=== PATIENT | male | born 1930 | race Caucasian/White ===

== ENCOUNTER 2017-10-17 15:10 | Inpatient (IN) | payer OTHER ==
[~2017-10-17] VITALS: Ht 180.3 cm; Wt 79.0 kg
[2017-10-17] VITALS (9 sets, daily range): BP systolic 137–171; BP diastolic 68–78; Ht 180.3 cm; Wt 79.0 kg
[~2017-10-17 15:10] MED LIST: ALTOPREV10 MG PO; DIOHCT PO
[2017-10-17 18:56] LABS: PLATELET COUNT 173 x10^3mcL (130-400)
[2017-10-17 18:59] LABS: BASOPHIL % 0 % (0-2); RED CELL DISTRIBUTION WIDTH 15.8 % (11.5-14.5)
[2017-10-17 19:15] LABS: ALBUMIN 2.9 g/dL (3.4-5.0); ALKALINE PHOSPHATASE 503 U/L (46-116); ALT/SGPT 137 U/L (16-63); AST/SGOT 86 U/L (15-37); BILIRUBIN TOTAL 4.43 mg/dL (0.20-1.00); CALCIUM 8.1 mg/dL (8.5-10.1); CARBON DIOXIDE 13.1 mmol/L (21-32); CHLORIDE SERUM 104 mmol/L (98-107); GLUCOSE SERUM 107 mg/dL (74-106); POTASSIUM SERUM 4.7 mmol/L (3.5-5.1); SODIUM SERUM 134 mmol/L (136-145); TOTAL PROTEIN, SERUM 7.7 g/dL (6.4-8.2)
[2017-10-17 19:19] LABS: CREATININE SERUM 10.2 mg/dL (0.7-1.3)
[2017-10-17] MEDS ORDERED: LANTUS SOLOS100 U/M1 (19:41)
[2017-10-17 20:38] LABS: UA SPECIFIC GRAVITY >=1.030 (1.005-1.035); microscopic required? YES; urine erythrocyte 2+ (NEGATIVE)
[2017-10-18 05:09] VITALS: BP 138/72
[2017-10-18 06:40] LABS: PLATELET COUNT 162 x10^3mcL (130-400)
[2017-10-18 06:46] LABS: BASOPHIL % 0 % (0-2); RED CELL DISTRIBUTION WIDTH 15.5 % (11.5-14.5)
[2017-10-18 06:54] LABS: ALKALINE PHOSPHATASE 491 U/L (46-116); ALT/SGPT 129 U/L (16-63); AST/SGOT 114 U/L (15-37); BILIRUBIN TOTAL 5.31 mg/dL (0.20-1.00); CALCIUM 8.2 mg/dL (8.5-10.1); CARBON DIOXIDE 16.7 mmol/L (21-32); CHLORIDE SERUM 103 mmol/L (98-107); GLUCOSE SERUM 101 mg/dL (74-106); MAGNESIUM 1.8 mg/dL (1.8-2.4); PHOSPHOROUS 6.2 mg/dL (2.5-4.9); POTASSIUM SERUM 5.2 mmol/L (3.5-5.1); SODIUM SERUM 137 mmol/L (136-145); TOTAL PROTEIN, SERUM 7.5 g/dL (6.4-8.2)
[2017-10-18 07:21] LABS: ALBUMIN 2.6 g/dL (3.4-5.0)
[2017-10-18 09:38] VITALS: BP 134/74
[2017-10-18 10:34] LABS: CREATININE SERUM 8.1 mg/dL (0.7-1.3)
[2017-10-18 10:45] LABS: BAND NEUTROPHIL 37 % (0-10); BASOPHIL 0 % (0-2); METAMYELOCTE 1 % (0-2); MONOCYTE 1 % (0-7); SEGMENTED NEUTROPHILS 60 % (37-75)
[2017-10-18 10:48] LABS: rbc morphology (normal/abnorm) ABNORMAL (NORMAL)
[2017-10-18 10:49] LABS: burr cell (echinocyte) 1+
[2017-10-18 10:50] LABS: acanthocyte (spur cell) 1+
[2017-10-18 13:06] VITALS: BP 147/75
[2017-10-18 16:43] VITALS: BP 107/67
[2017-10-18 18:53] VITALS: BP 100/62
[2017-10-18 21:24] VITALS: BP 107/55
[2017-10-19 05:45] VITALS: BP 131/72
[2017-10-19 09:35] VITALS: BP 122/89
[2017-10-19 11:59] LABS: PLATELET COUNT 150 x10^3mcL (130-400)
[2017-10-19 12:06] LABS: RED CELL DISTRIBUTION WIDTH 15.9 % (11.5-14.5)
[2017-10-19 12:14] LABS: CARBON DIOXIDE 14.8 mmol/L (21-32); CHLORIDE SERUM 101 mmol/L (98-107); GLUCOSE SERUM 195 mg/dL (74-106); PHOSPHOROUS 6.2 mg/dL (2.5-4.9); SODIUM SERUM 133 mmol/L (136-145)
[2017-10-19 12:16] LABS: IRON 54 ug/dL (65-170)
[2017-10-19 12:19] LABS: TOTAL IRON BINDING CAPACITY 101 ug/dL (250-450)
[2017-10-19 12:22] LABS: CREATININE SERUM 9.1 mg/dL (0.7-1.3)
[2017-10-19 13:38] VITALS: BP 152/74
[2017-10-19 18:11] VITALS: BP 149/75
[2017-10-19 18:27] LABS: BAND NEUTROPHIL 15 % (0-10); MONOCYTE 5 % (0-7); SEGMENTED NEUTROPHILS 73 % (37-75); rbc morphology (normal/abnorm) ABNORMAL (NORMAL)
[2017-10-19 18:28] LABS: PLATELET MORPHOLOGY LARGE PLATELET SEEN; acanthocyte (spur cell) 1+; burr cell (echinocyte) 1+; ovalocyte/elliptocyte 1+
[2017-10-19 20:39] VITALS: BP 135/68
[2017-10-20] VITALS (7 sets, daily range): BP systolic 116–163; BP diastolic 63–97
[2017-10-20 06:44] LABS: ALKALINE PHOSPHATASE 362 U/L (46-116); ALT/SGPT 84 U/L (16-63); AST/SGOT 32 U/L (15-37); BILIRUBIN DIRECT 1.24 mg/dL (0.0-0.2); BILIRUBIN TOTAL 1.7 mg/dL (0.20-1.00); CALCIUM 7.3 mg/dL (8.5-10.1); CHLORIDE SERUM 104 mmol/L (98-107); GLUCOSE SERUM 142 mg/dL (74-106); LIPASE 590 IU/L (73-393); MAGNESIUM 1.7 mg/dL (1.8-2.4); POTASSIUM SERUM 4.2 mmol/L (3.5-5.1); SODIUM SERUM 136 mmol/L (136-145)
[2017-10-20 06:48] LABS: ALBUMIN 2.1 g/dL (3.4-5.0)
[2017-10-20 06:49] LABS: CREATININE SERUM 6.4 mg/dL (0.7-1.3)
[2017-10-20 06:57] LABS: PLATELET COUNT 170 x10^3mcL (130-400)
[2017-10-20 06:58] LABS: RED CELL DISTRIBUTION WIDTH 15.4 % (11.5-14.5)
[2017-10-20 08:10] LABS: BAND NEUTROPHIL 0 % (0-10); BASOPHIL 0 % (0-2); MONOCYTE 1 % (0-7); SEGMENTED NEUTROPHILS 90 % (37-75); rbc morphology (normal/abnorm) ABNORMAL (NORMAL)
[2017-10-20 08:11] LABS: PLATELET MORPHOLOGY PLATELETS DECREASED
[2017-10-21 04:47] VITALS: BP 150/75
[2017-10-21 06:41] LABS: PLATELET COUNT 166 x10^3mcL (130-400)
[2017-10-21 06:43] LABS: BASOPHIL % 0 % (0-2)
[2017-10-21 07:08] LABS: CALCIUM 7.7 mg/dL (8.5-10.1); CARBON DIOXIDE 18.1 mmol/L (21-32); CHLORIDE SERUM 100 mmol/L (98-107); GLUCOSE SERUM 158 mg/dL (74-106); MAGNESIUM 1.9 mg/dL (1.8-2.4); POTASSIUM SERUM 4.8 mmol/L (3.5-5.1); SODIUM SERUM 135 mmol/L (136-145)
[2017-10-21 07:20] LABS: CREATININE SERUM 7.5 mg/dL (0.7-1.3)
[2017-10-21 13:46] VITALS: BP 160/52
[2017-10-21 17:37] VITALS: BP 143/71
[2017-10-21 21:45] VITALS: BP 139/73
[2017-10-22 06:02] VITALS: BP 150/75
[2017-10-22 06:32] LABS: PLATELET COUNT 182 x10^3mcL (130-400)
[2017-10-22 06:58] LABS: RED CELL DISTRIBUTION WIDTH 15.4 % (11.5-14.5)
[2017-10-22 07:13] LABS: ALKALINE PHOSPHATASE 284 U/L (46-116); ALT/SGPT 51 U/L (16-63); AST/SGOT 19 U/L (15-37); BILIRUBIN TOTAL 1.1 mg/dL (0.20-1.00); CALCIUM 6.9 mg/dL (8.5-10.1); CARBON DIOXIDE 20.8 mmol/L (21-32); CHLORIDE SERUM 99 mmol/L (98-107); GLUCOSE SERUM 159 mg/dL (74-106); MAGNESIUM 1.8 mg/dL (1.8-2.4); PHOSPHOROUS 6.7 mg/dL (2.5-4.9); SODIUM SERUM 135 mmol/L (136-145); TOTAL PROTEIN, SERUM 6.9 g/dL (6.4-8.2)
[2017-10-22 09:04] VITALS: BP 159/72
[2017-10-22 09:42] LABS: BAND NEUTROPHIL 6 % (0-10); BASOPHIL 0 % (0-2); MONOCYTE 8 % (0-7); SEGMENTED NEUTROPHILS 73 % (37-75)
[2017-10-22 09:43] LABS: ovalocyte/elliptocyte 1+; rbc morphology (normal/abnorm) ABNORMAL (NORMAL)
[2017-10-22 13:00] VITALS: BP 150/70
[2017-10-22 17:51] VITALS: BP 180/92
[2017-10-22 21:37] VITALS: BP 118/71
[2017-10-23] VITALS (8 sets, daily range): BP systolic 105–155; BP diastolic 53–66
[2017-10-23] MEDS ORDERED: CIPRO250 MG PO (11:13)
[2017-10-24 05:43] VITALS: BP 131/58
[2017-10-24 06:45] LABS: ALKALINE PHOSPHATASE 223 U/L (46-116); ALT/SGPT 37 U/L (16-63); AST/SGOT 20 U/L (15-37); BILIRUBIN TOTAL 0.9 mg/dL (0.20-1.00); CALCIUM 7.1 mg/dL (8.5-10.1); CARBON DIOXIDE 19.5 mmol/L (21-32); CHLORIDE SERUM 98 mmol/L (98-107); GLUCOSE SERUM 182 mg/dL (74-106); POTASSIUM SERUM 5.3 mmol/L (3.5-5.1); SODIUM SERUM 133 mmol/L (136-145); TOTAL PROTEIN, SERUM 6.8 g/dL (6.4-8.2)
[2017-10-24 07:20] LABS: CREATININE SERUM 6.9 mg/dL (0.7-1.3)
[2017-10-24] MEDS ORDERED: NOR5 PO (09:40)
[2017-10-24 10:24] VITALS: BP 119/64
[2017-10-24 13:19] VITALS: BP 156/74
[2017-10-24 16:02] VITALS: BP 147/62
[2017-10-24 16:08] VITALS: BP 147/68
[2017-10-24 18:12] VITALS: BP 115/67
== END 2017-10-24 18:55 | disposition home or self-care (01) | DRG 871 ==
LOC: ED 15:10 → DU 19:29
PROVIDERS: Internal Medicine Nephrology; Internal Medicine Pulmonary Disease; Specialist; Surgery
PROC: 5A1D70Z Performance of Urinary Filtration, Intermittent, Less than 6 Hours Per Day (ICD-10-PCS; 2017-10-17)
PROC: 06HY33Z Insertion of Infusion Device into Lower Vein, Percutaneous Approach (ICD-10-PCS; 2017-10-17)
PROC: B5131ZA Fluoroscopy of Right Jugular Veins using Low Osmolar Contrast, Guidance (ICD-10-PCS; 2017-10-21)
PROC: 2W5 Placement, Anatomical Regions, Removal (ICD-10-PCS; 2017-10-21)
PROC: 05HM33Z Insertion of Infusion Device into Right Internal Jugular Vein, Percutaneous Approach (ICD-10-PCS; principal; 2017-10-21 07:00)
PROC: 05HN33Z Insertion of Infusion Device into Left Internal Jugular Vein, Percutaneous Approach (ICD-10-PCS; 2017-10-22)
PROC: B5141ZA Fluoroscopy of Left Jugular Veins using Low Osmolar Contrast, Guidance (ICD-10-PCS; 2017-10-22)
DX: A41.9 Sepsis, unspecified organism (principal); K85.90 Acute pancreatitis without necrosis or infection, unspecified; N18.6 End stage renal disease; K81.0 Acute cholecystitis; E87.2 Acidosis; I12.0 Hypertensive chronic kidney disease with stage 5 chronic kidney disease or end stage renal disease; N17.9 Acute kidney failure, unspecified; R65.20 Severe sepsis without septic shock; E11.22 Type 2 diabetes mellitus with diabetic chronic kidney disease; E11.65 Type 2 diabetes mellitus with hyperglycemia; E83.39 Other disorders of phosphorus metabolism; E87.5 Hyperkalemia; D64.9 Anemia, unspecified; E78.00 Pure hypercholesterolemia, unspecified; Z68.26 Body mass index [BMI] 26.0-26.9, adult; Z79.4 Long term (current) use of insulin; Z90.5 Acquired absence of kidney; Z99.2 Dependence on renal dialysis; Z91.15 Patient's noncompliance with renal dialysis
CPT/HCPCS: 36600; 82962; A4301; J0171; J0461; J0610; J1200; J1644; J2001; J2250; J2270; J2310; J2543; J2704; J2765; J3010; J3490; J7030; J7040; Q0092

== ENCOUNTER 2017-10-29 10:20 | Observation (INO) | payer OTHER ==
[~2017-10-29] VITALS: Ht 180.3 cm; Wt 86.9 kg
[~2017-10-29 10:20] MED LIST changes: +CIPRO250 MG PO; +LANTUS SOLOS100 U/M1; +NOR5 PO
[2017-10-29 10:22] VITALS: Ht 180.3 cm; Wt 86.9 kg
[2017-10-29 11:00] LABS: BASOPHIL % 0.1 % (0-2); PLATELET COUNT 263 x10^3mcL (130-400); RED CELL DISTRIBUTION WIDTH 14.1 % (11.5-14.5)
[2017-10-29 11:15] LABS: UA SPECIFIC GRAVITY 1.015 (1.005-1.035); microscopic required? YES; urine erythrocyte 1+ (NEGATIVE)
[2017-10-29 11:24] LABS: ALKALINE PHOSPHATASE 251 U/L (46-116); ALT/SGPT 23 U/L (16-63); AST/SGOT 14 U/L (15-37); BILIRUBIN TOTAL 0.67 mg/dL (0.20-1.00); CALCIUM 7.3 mg/dL (8.5-10.1); CARBON DIOXIDE 17.4 mmol/L (21-32); CHLORIDE SERUM 102 mmol/L (98-107); POTASSIUM SERUM 5.1 mmol/L (3.5-5.1); SODIUM SERUM 134 mmol/L (136-145); TOTAL PROTEIN, SERUM 7.4 g/dL (6.4-8.2)
[2017-10-29 11:29] LABS: ALBUMIN 2.4 g/dL (3.4-5.0)
[2017-10-29 11:30] LABS: CREATININE SERUM 8.8 mg/dL (0.7-1.3); GLUCOSE SERUM 468 mg/dL (74-106)
[2017-10-29 13:46] VITALS: BP 178/78
[2017-10-29 15:53] VITALS: BP 165/71
[2017-10-29 20:37] VITALS: BP 178/77
[2017-10-30 05:48] VITALS: BP 156/63
[2017-10-30 06:30] LABS: BASOPHIL % 0.2 % (0-2); PLATELET COUNT 235 x10^3mcL (130-400); RED CELL DISTRIBUTION WIDTH 14.5 % (11.5-14.5)
[2017-10-30 06:57] LABS: CALCIUM 7.8 mg/dL (8.5-10.1); CARBON DIOXIDE 29.8 mmol/L (21-32); CHLORIDE SERUM 106 mmol/L (98-107); GLUCOSE SERUM 68 mg/dL (74-106); POTASSIUM SERUM 3.6 mmol/L (3.5-5.1); SODIUM SERUM 142 mmol/L (136-145)
[2017-10-30 07:02] LABS: CREATININE SERUM 4.5 mg/dL (0.7-1.3)
[2017-10-30 09:52] VITALS: BP 138/99
[2017-10-30] MEDS ORDERED: insulin SC (10:33)
[2017-10-30 14:09] VITALS: BP 104/56
[2017-10-30 17:51] VITALS: BP 109/53
[2017-10-30 20:56] VITALS: BP 106/54
[2017-10-31 05:34] VITALS: BP 139/61
[2017-10-31 06:21] LABS: CALCIUM 7.5 mg/dL (8.5-10.1); CARBON DIOXIDE 30.6 mmol/L (21-32); CHLORIDE SERUM 103 mmol/L (98-107); CREATININE SERUM 3.8 mg/dL (0.7-1.3); GLUCOSE SERUM 67 mg/dL (74-106); MAGNESIUM 1.5 mg/dL (1.8-2.4); POTASSIUM SERUM 3.9 mmol/L (3.5-5.1); SODIUM SERUM 140 mmol/L (136-145)
[2017-10-31 06:35] LABS: BASOPHIL % 0.3 % (0-2); PLATELET COUNT 254 x10^3mcL (130-400); RED CELL DISTRIBUTION WIDTH 14.2 % (11.5-14.5)
[2017-10-31 14:59] VITALS: BP 139/61
== END 2017-10-31 16:21 | disposition home or self-care (01) | DRG 682 ==
LOC: ED 10:20 → MU 11:41 → EDBEDREQ 11:43 → MU 12:45
PROVIDERS: Emergency Medicine; Internal Medicine Nephrology; Internal Medicine Pulmonary Disease
DX: I12.0 Hypertensive chronic kidney disease with stage 5 chronic kidney disease or end stage renal disease (principal); N18.6 End stage renal disease; N17.9 Acute kidney failure, unspecified; E87.1 Hypo-osmolality and hyponatremia; E87.2 Acidosis; I48.91 Unspecified atrial fibrillation; E11.65 Type 2 diabetes mellitus with hyperglycemia; E11.21 Type 2 diabetes mellitus with diabetic nephropathy; E87.5 Hyperkalemia; E83.39 Other disorders of phosphorus metabolism; E83.51 Hypocalcemia; D63.1 Anemia in chronic kidney disease; Z68.27 Body mass index [BMI] 27.0-27.9, adult; Z90.5 Acquired absence of kidney; Z99.2 Dependence on renal dialysis; Z79.4 Long term (current) use of insulin; Z91.15 Patient's noncompliance with renal dialysis
CPT/HCPCS: 83880; A4719; G0378; J1644; J1815; J3490; J7030

== ENCOUNTER 2017-11-05 14:04 | Inpatient (IN) | payer OTHER ==
[~2017-11-05] VITALS: Ht 180.3 cm; Wt 82.8 kg
[~2017-11-05 14:04] MED LIST changes: +insulin SC
[2017-11-05 14:21] VITALS: Ht 180.3 cm; Wt 82.8 kg
[2017-11-05 15:44] LABS: BASOPHIL % 0.4 % (0-2); PLATELET COUNT 224 x10^3mcL (130-400)
[2017-11-05 15:45] LABS: RED CELL DISTRIBUTION WIDTH 14.6 % (11.5-14.5)
[2017-11-05 15:58] LABS: ALKALINE PHOSPHATASE 167 U/L (46-116); ALT/SGPT 21 U/L (16-63); AST/SGOT 21 U/L (15-37); BILIRUBIN TOTAL 0.54 mg/dL (0.20-1.00); CALCIUM 7.3 mg/dL (8.5-10.1); CARBON DIOXIDE 26.4 mmol/L (21-32); CHLORIDE SERUM 104 mmol/L (98-107); GLUCOSE SERUM 121 mg/dL (74-106); POTASSIUM SERUM 4.2 mmol/L (3.5-5.1); SODIUM SERUM 140 mmol/L (136-145); TOTAL PROTEIN, SERUM 7.1 g/dL (6.4-8.2)
[2017-11-05 16:47] LABS: ALBUMIN 2.5 g/dL (3.4-5.0); CREATININE SERUM 6.6 mg/dL (0.7-1.3)
[2017-11-05] MEDS ORDERED: LANTUS100 U/ML SQ (17:14)
[2017-11-05] MEDS ORDERED: RENVELA800 M1 PO (17:15)
[2017-11-05] MEDS ORDERED: AMIODARONE HYD200 M1 PO (17:16)
[2017-11-05 18:15] VITALS: BP 181/69
[2017-11-05 22:20] VITALS: BP 164/76
[2017-11-06 05:25] VITALS: BP 167/75
[2017-11-06 06:30] LABS: CALCIUM 7.2 mg/dL (8.5-10.1); CARBON DIOXIDE 22.3 mmol/L (21-32); CHLORIDE SERUM 106 mmol/L (98-107); GLUCOSE SERUM 69 mg/dL (74-106); SODIUM SERUM 142 mmol/L (136-145)
[2017-11-06 06:31] LABS: BASOPHIL % 0.2 % (0-2); PLATELET COUNT 194 x10^3mcL (130-400)
[2017-11-06 06:37] LABS: CREATININE SERUM 6.4 mg/dL (0.7-1.3)
[2017-11-06 07:23] LABS: RED CELL DISTRIBUTION WIDTH 14.6 % (11.5-14.5)
[2017-11-06 09:31] VITALS: BP 155/77
[2017-11-06 12:59] VITALS: BP 176/71
[2017-11-06 14:25] VITALS: BP 159/68
[2017-11-06 17:58] VITALS: BP 140/71
[2017-11-06 21:20] VITALS: BP 141/73
[2017-11-07 05:53] VITALS: BP 173/70
[2017-11-07 06:39] LABS: BASOPHIL % 0.4 % (0-2); PLATELET COUNT 170 x10^3mcL (130-400); RED CELL DISTRIBUTION WIDTH 14.5 % (11.5-14.5)
[2017-11-07 07:24] LABS: CALCIUM 7.2 mg/dL (8.5-10.1); CARBON DIOXIDE 26.1 mmol/L (21-32); CHLORIDE SERUM 103 mmol/L (98-107); GLUCOSE SERUM 118 mg/dL (74-106); POTASSIUM SERUM 3.9 mmol/L (3.5-5.1); SODIUM SERUM 137 mmol/L (136-145)
[2017-11-07 09:07] VITALS: BP 139/58
[2017-11-07 12:08] VITALS: BP 151/78
[2017-11-07 14:04] VITALS: BP 151/78
== END 2017-11-07 14:59 | disposition home or self-care (01) | DRG 350 ==
LOC: ED 14:04 → DU 16:57
PROVIDERS: Emergency Medicine; Internal Medicine Pulmonary Disease; Surgery
PROC: 0YU60JZ Supplement Left Inguinal Region with Synthetic Substitute, Open Approach (ICD-10-PCS; principal; 2017-11-05 19:30)
DX: K40.30 Unilateral inguinal hernia, with obstruction, without gangrene, not specified as recurrent (principal); N18.6 End stage renal disease; I12.0 Hypertensive chronic kidney disease with stage 5 chronic kidney disease or end stage renal disease; E11.22 Type 2 diabetes mellitus with diabetic chronic kidney disease; Z99.2 Dependence on renal dialysis; Z79.4 Long term (current) use of insulin
CPT/HCPCS: 97110-GP; 97116-GP; 97530-GP; A4719; C1781; J0690; J0885-EC; J1650; J1885; J2250; J3010; J3490; J7030

== ENCOUNTER 2018-03-11 16:40 | Inpatient (IN) | payer OTHER ==
[~2018-03-11] VITALS: Ht 180.3 cm; Wt 83.2 kg
[~2018-03-11 16:40] MED LIST changes: +AMIODARONE HYD200 M1 PO; +LANTUS100 U/ML SQ; +RENVELA800 M1 PO
[2018-03-11 16:54] VITALS: Ht 180.3 cm; Wt 83.2 kg
[2018-03-11 17:33] LABS: BASOPHIL % 0.5 % (0-2); PLATELET COUNT 167 x10^3mcL (130-400); RED CELL DISTRIBUTION WIDTH 13.6 % (11.5-14.5)
[2018-03-11 17:45] LABS: ALKALINE PHOSPHATASE 160 U/L (46-116); ALT/SGPT 18 U/L (16-63); AST/SGOT 12 U/L (15-37); BILIRUBIN TOTAL 0.2 mg/dL (0.20-1.00); CALCIUM 8.2 mg/dL (8.5-10.1); CARBON DIOXIDE 22.3 mmol/L (21-32); CHLORIDE SERUM 103 mmol/L (98-107); GLUCOSE SERUM 183 mg/dL (74-106); POTASSIUM SERUM 4.9 mmol/L (3.5-5.1); SODIUM SERUM 137 mmol/L (136-145); TOTAL PROTEIN, SERUM 7.4 g/dL (6.4-8.2)
[2018-03-11 17:49] LABS: ALBUMIN 2.8 g/dL (3.4-5.0)
[2018-03-11 17:50] LABS: CREATININE SERUM 7.2 mg/dL (0.7-1.3)
[2018-03-11 21:24] VITALS: BP 188/83
[2018-03-11 22:22] LABS: UA SPECIFIC GRAVITY 1.015 (1.005-1.035); microscopic required? YES; urine erythrocyte TRACE (NEGATIVE)
[2018-03-11 22:36] LABS: AMPHETAMINE QUAL UR NONE DETECTED (See below)
[2018-03-12 00:23] VITALS: BP 132/54
[2018-03-12 05:54] VITALS: BP 153/72
[2018-03-12 07:08] LABS: ALKALINE PHOSPHATASE 119 U/L (46-116); AST/SGOT 10 U/L (15-37); BILIRUBIN TOTAL 0.2 mg/dL (0.20-1.00); CALCIUM 8.3 mg/dL (8.5-10.1); CARBON DIOXIDE 20.4 mmol/L (21-32); CHLORIDE SERUM 106 mmol/L (98-107); GLUCOSE SERUM 108 mg/dL (74-106); POTASSIUM SERUM 4.9 mmol/L (3.5-5.1); SODIUM SERUM 141 mmol/L (136-145); TOTAL PROTEIN, SERUM 6.8 g/dL (6.4-8.2)
[2018-03-12 07:09] LABS: ALBUMIN 2.5 g/dL (3.4-5.0)
[2018-03-12 07:11] LABS: CREATININE SERUM 7.2 mg/dL (0.7-1.3)
[2018-03-12 07:22] LABS: ALT/SGPT 13 U/L (16-63)
[2018-03-12 10:20] VITALS: BP 177/82
[2018-03-12 13:08] VITALS: BP 153/75
[2018-03-12 17:00] VITALS: BP 143/77
[2018-03-12 20:14] VITALS: BP 146/86
[2018-03-13 05:40] VITALS: BP 135/62
[2018-03-13 06:18] LABS: BASOPHIL % 0.3 % (0-2); PLATELET COUNT 185 x10^3mcL (130-400); RED CELL DISTRIBUTION WIDTH 13.6 % (11.5-14.5)
[2018-03-13 06:37] LABS: ALKALINE PHOSPHATASE 120 U/L (46-116); ALT/SGPT 13 U/L (16-63); AST/SGOT 10 U/L (15-37); BILIRUBIN TOTAL 0.2 mg/dL (0.20-1.00); CALCIUM 8.4 mg/dL (8.5-10.1); CARBON DIOXIDE 21.2 mmol/L (21-32); CHLORIDE SERUM 106 mmol/L (98-107); GLUCOSE SERUM 145 mg/dL (74-106); PHOSPHOROUS 4.6 mg/dL (2.5-4.9); POTASSIUM SERUM 5.1 mmol/L (3.5-5.1); SODIUM SERUM 140 mmol/L (136-145)
[2018-03-13 06:52] LABS: ALBUMIN 2.5 g/dL (3.4-5.0)
[2018-03-13 06:53] LABS: CREATININE SERUM 7.5 mg/dL (0.7-1.3)
[2018-03-13 08:24] VITALS: BP 158/79
[2018-03-13 14:20] VITALS: BP 137/73
[2018-03-13 14:46] VITALS: BP 141/72
[2018-03-13 18:05] VITALS: BP 160/79
[2018-03-13 20:27] VITALS: BP 131/69
[2018-03-14 05:43] VITALS: BP 112/49
[2018-03-14 06:06] LABS: BASOPHIL % 0.3 % (0-2); PLATELET COUNT 173 x10^3mcL (130-400); RED CELL DISTRIBUTION WIDTH 13.5 % (11.5-14.5)
[2018-03-14 06:38] LABS: ALKALINE PHOSPHATASE 111 U/L (46-116); ALT/SGPT 14 U/L (16-63); AST/SGOT 15 U/L (15-37); BILIRUBIN TOTAL 0.26 mg/dL (0.20-1.00); CARBON DIOXIDE 21.6 mmol/L (21-32); CHLORIDE SERUM 111 mmol/L (98-107); GLUCOSE SERUM 114 mg/dL (74-106); SODIUM SERUM 145 mmol/L (136-145); TOTAL PROTEIN, SERUM 6.7 g/dL (6.4-8.2)
[2018-03-14 07:01] LABS: ALBUMIN 2.5 g/dL (3.4-5.0); CREATININE SERUM 7.5 mg/dL (0.7-1.3)
[2018-03-14 09:21] VITALS: BP 153/71
[2018-03-14 11:50] LABS: CALCIUM 8.7 mg/dL (8.5-10.1); CARBON DIOXIDE 21.6 mmol/L (21-32); CHLORIDE SERUM 111 mmol/L (98-107); GLUCOSE SERUM 147 mg/dL (74-106); POTASSIUM SERUM 5.1 mmol/L (3.5-5.1); SODIUM SERUM 144 mmol/L (136-145)
[2018-03-14 12:00] LABS: CREATININE SERUM 7.8 mg/dL (0.7-1.3)
[2018-03-14 13:12] VITALS: BP 156/76
[2018-03-14 16:53] VITALS: BP 168/81
[2018-03-14 21:15] VITALS: BP 140/83
[2018-03-15 07:47] VITALS: BP 150/78
[2018-03-15 07:47] LABS: BASOPHIL % 0.3 % (0-2); PLATELET COUNT 152 x10^3mcL (130-400); RED CELL DISTRIBUTION WIDTH 12.8 % (11.5-14.5)
[2018-03-15 07:57] LABS: ALKALINE PHOSPHATASE 121 U/L (46-116); ALT/SGPT 11 U/L (16-63); AST/SGOT 12 U/L (15-37); BILIRUBIN TOTAL 0.2 mg/dL (0.20-1.00); CALCIUM 8.3 mg/dL (8.5-10.1); CARBON DIOXIDE 22.6 mmol/L (21-32); CARBON DIOXIDE 22.8 mmol/L (21-32); CHLORIDE SERUM 109 mmol/L (98-107); GLUCOSE SERUM 137 mg/dL (74-106); POTASSIUM SERUM 4.4 mmol/L (3.5-5.1); POTASSIUM SERUM 4.5 mmol/L (3.5-5.1); SODIUM SERUM 143 mmol/L (136-145); SODIUM SERUM 144 mmol/L (136-145); TOTAL PROTEIN, SERUM 7.1 g/dL (6.4-8.2)
[2018-03-15 08:02] LABS: ALBUMIN 2.6 g/dL (3.4-5.0); CREATININE SERUM 7.2 mg/dL (0.7-1.3)
[2018-03-15 08:05] LABS: CREATININE SERUM 7.2 mg/dL (0.7-1.3)
[2018-03-15 12:20] VITALS: BP 156/80
[2018-03-15 16:54] VITALS: BP 131/73
[2018-03-15 17:04] VITALS: BP 123/76
[2018-03-15 20:58] VITALS: BP 131/73
[2018-03-16 05:26] VITALS: BP 101/51
[2018-03-16 06:36] LABS: ALKALINE PHOSPHATASE 110 U/L (46-116); ALT/SGPT 7 U/L (16-63); AST/SGOT 11 U/L (15-37); BILIRUBIN TOTAL 0.24 mg/dL (0.20-1.00); CALCIUM 7.5 mg/dL (8.5-10.1); CARBON DIOXIDE 27.2 mmol/L (21-32); CHLORIDE SERUM 108 mmol/L (98-107); GLUCOSE SERUM 164 mg/dL (74-106); POTASSIUM SERUM 4.1 mmol/L (3.5-5.1); SODIUM SERUM 142 mmol/L (136-145)
[2018-03-16 06:45] LABS: ALBUMIN 2.3 g/dL (3.4-5.0); CREATININE SERUM 4.9 mg/dL (0.7-1.3); TOTAL PROTEIN, SERUM 6.1 g/dL (6.4-8.2)
[2018-03-16] MEDS ORDERED: NOR10 PO (09:01)
[2018-03-16] MEDS ORDERED: ELIQUIS5 MG PO (09:01)
[2018-03-16] MEDS ORDERED: COR200 PO (09:04)
[2018-03-16] MEDS ORDERED: ZES20 PO (09:04)
[2018-03-16 09:50] VITALS: BP 130/64
== END 2018-03-16 16:07 | disposition home or self-care (01) | DRG 314 ==
LOC: ED 16:40 → DU 19:57
PROVIDERS: Emergency Medicine; Internal Medicine; Internal Medicine Nephrology; Surgery
PROC: 05HM33Z Insertion of Infusion Device into Right Internal Jugular Vein, Percutaneous Approach (ICD-10-PCS; principal; 2018-03-13 10:30)
PROC: 0J2TXYZ Change Other Device in Trunk Subcutaneous Tissue and Fascia, External Approach (ICD-10-PCS; 2018-03-14)
PROC: 05PYX3Z Removal of Infusion Device from Upper Vein, External Approach (ICD-10-PCS; 2018-03-15)
PROC: 05HN33Z Insertion of Infusion Device into Left Internal Jugular Vein, Percutaneous Approach (ICD-10-PCS; 2018-03-15)
DX: T82.898A Other specified complication of vascular prosthetic devices, implants and grafts, initial encounter (principal); N18.6 End stage renal disease; I12.0 Hypertensive chronic kidney disease with stage 5 chronic kidney disease or end stage renal disease; I82.C11 Acute embolism and thrombosis of right internal jugular vein; I82.621 Acute embolism and thrombosis of deep veins of right upper extremity; E11.22 Type 2 diabetes mellitus with diabetic chronic kidney disease; Z99.2 Dependence on renal dialysis; Z90.5 Acquired absence of kidney; Y71.2 Prosthetic and other implants, materials and accessory cardiovascular devices associated with adverse incidents; Y92.008 Other place in unspecified non-institutional (private) residence as the place of occurrence of the external cause
CPT/HCPCS: 82962; A4301; J0360; J0690; J1170; J1642; J1644; J2001; J2250; J2997; J3010; J3490; J7030; J7050; Q0092; Q9967

== ENCOUNTER 2018-06-17 13:16 | Emergency (ER) | payer OTHER ==
[~2018-06-17 13:16] MED LIST changes: +COR200 PO; +ELIQUIS5 MG PO; +NOR10 PO; +ZES20 PO
[2018-06-17 13:24] VITALS: Ht 180.3 cm
[2018-06-17 14:37] LABS: BASOPHIL % 0.1 % (0-2); PLATELET COUNT 166 x10^3mcL (130-400); RED CELL DISTRIBUTION WIDTH 14.3 % (11.5-14.5)
[2018-06-17 14:49] LABS: CALCIUM 8.4 mg/dL (8.5-10.1); CARBON DIOXIDE 28.4 mmol/L (21-32); CHLORIDE SERUM 100 mmol/L (98-107); GLUCOSE SERUM 179 mg/dL (74-106); POTASSIUM SERUM 5.1 mmol/L (3.5-5.1); SODIUM SERUM 135 mmol/L (136-145)
[2018-06-17 14:54] LABS: CREATININE SERUM 5.9 mg/dL (0.7-1.3)
[2018-06-17 16:11] VITALS: BP 142/73
== END 2018-06-17 16:10 | disposition home or self-care (01) ==
LOC: ED 13:16
PROVIDERS: Emergency Medicine
DX: S20.211A Contusion of right front wall of thorax, initial encounter (principal); S60.221A Contusion of right hand, initial encounter; E11.22 Type 2 diabetes mellitus with diabetic chronic kidney disease; I12.0 Hypertensive chronic kidney disease with stage 5 chronic kidney disease or end stage renal disease; N18.6 End stage renal disease; Z99.2 Dependence on renal dialysis; W01.0XXA Fall on same level from slipping, tripping and stumbling without subsequent striking against object, initial encounter; Y93.89 Activity, other specified; Y92.098 Other place in other non-institutional residence as the place of occurrence of the external cause; Y99.8 Other external cause status
CPT/HCPCS: 36415

== ENCOUNTER 2018-06-28 13:15 | Emergency (ER) | payer OTHER ==
[~2018-06-28] VITALS: Ht 180.3 cm; Wt 88.0 kg
[2018-06-28 13:21] VITALS: Ht 180.3 cm; Wt 88.0 kg
[2018-06-28 17:50] VITALS: BP 171/85
== END 2018-06-28 17:50 | disposition home or self-care (01) ==
LOC: ED 13:15
DX: S00.03XA Contusion of scalp, initial encounter (principal); S83.91XA Sprain of unspecified site of right knee, initial encounter; E11.22 Type 2 diabetes mellitus with diabetic chronic kidney disease; I12.0 Hypertensive chronic kidney disease with stage 5 chronic kidney disease or end stage renal disease; N18.6 End stage renal disease; D17.0 Benign lipomatous neoplasm of skin and subcutaneous tissue of head, face and neck; Z99.2 Dependence on renal dialysis; W01.0XXA Fall on same level from slipping, tripping and stumbling without subsequent striking against object, initial encounter; Y93.89 Activity, other specified; Y92.481 Parking lot as the place of occurrence of the external cause; Y99.8 Other external cause status
CPT/HCPCS: Q0092

== ENCOUNTER 2018-09-02 07:37 | Observation (INO) | payer OTHER ==
[~2018-09-02] VITALS: Ht 180.3 cm; Wt 84.2 kg
[2018-09-02 07:42] VITALS: Ht 180.3 cm; Wt 84.2 kg
--- NOTE | 2018-09-02 07:57 | NUR ---
PT C/O SOB SINCE LAST NIGHT. DIMINISHED LUNG [place] AUSCULTATED. PT REPORTS WORSE WHEN HE'S LYING DOWN. PT SOB WHEN HE SPEAKS WELL. PT RECLINED ON GURNEY IN UPRIGHT POSITION TO AID IN HIS BREATHING. 2L OF 02 ADMINISTERED VIA NC TO IMPROVE O2 SAT. PT TOLERATING WELL. COMFORT MEASURES IMPLEMENTED. CALL LIGHT W/IN REACH. PT AWAITING MSE. WILL CTM.
[2018-09-02 08:40] LABS: BASOPHIL % 0.4 % (0-2); PLATELET COUNT 168 x10^3mcL (130-400)
[2018-09-02 08:41] LABS: RED CELL DISTRIBUTION WIDTH 15.1 % (11.5-14.5)
[2018-09-02 08:49] LABS: ALKALINE PHOSPHATASE 98 U/L (46-116); ALT/SGPT 31 U/L (16-63); AST/SGOT 17 U/L (15-37); BILIRUBIN TOTAL 0.6 mg/dL (0.20-1.00); CALCIUM 9.1 mg/dL (8.5-10.1); CARBON DIOXIDE 31.9 mmol/L (21-32); CHLORIDE SERUM 106 mmol/L (98-107); GLUCOSE SERUM 139 mg/dL (74-106); POTASSIUM SERUM 4.4 mmol/L (3.5-5.1); SODIUM SERUM 145 mmol/L (136-145); TOTAL PROTEIN, SERUM 7.1 g/dL (6.4-8.2)
--- NOTE | 2018-09-02 09:11 | NUR ---
PT RECLINED ON GUBARBY IN POSITION OF COMFORT. RESPS E/U. NO S/S OF DISTRESS NOTED. CALL LIGHT W/IN REACH. WILL CTM.
[2018-09-02 09:32] LABS: ALBUMIN 2.9 g/dL (3.4-5.0); CREATININE SERUM 4.8 mg/dL (0.7-1.3)
[2018-09-02] MEDS ORDERED: AMLODIPINE BES2.5 M1 (09:54)
[2018-09-02] MEDS ORDERED: LANTI SQ (09:54)
[2018-09-02] MEDS ORDERED: TRAMADOL HCL50 MG (09:54)
[2018-09-02] MEDS ORDERED: ELIQUIS2.5 MG (09:55)
[2018-09-02] MEDS ORDERED: MULTI-VITAMINS1 TAB PO (09:55)
--- NOTE | 2018-09-02 10:49 | NUR ---
REPORT GIVEN TO TANNER LEIVA TO ASSUME CARE OF PT.
[2018-09-02 11:00] VITALS: BP 175/72
--- NOTE | 2018-09-02 11:00 | NUR ---
RECEIVED PT FROM ED VIA [employer]. PT AA/OX4. CAME TO ED DUE TO SOB X1 DAY. REPORTS SOB WITH EXERTION. DENIES SOB AT THIS TIME ON 4LNC. LUNG SOUNDS DIMINISHED BLL. RR EVEN/UNLABORED. RR 20. NO S/S OF ACUTE DISTRESS. DENIES PAIN. IV WNL RFA, 22 GAUGE. PATENT AND FLUSHES WELL. SALINE LOCKED. NSR ON TELE [address] ELEVATION. DENIES CHEST PAIN. PT CALM/COOPERATIVE. ORIENTED TO SURROUNDINGS. SIDE RAILS UP X2. BED IN LOW POSITION. CALL LIGHT WITHIN REACH. INSTRUCTED TO USE CALL LIGHT TO CALL FOR ASSISTANCE BEFORE GETTING OOB AND PRN. VERBALIZED UNDERSTANDING. WILL CONT. TO MONITOR.
--- NOTE | 2018-09-02 11:00 | NUR ---
RECEIVED PT FROM ED VIA [employer]. PT AA/OX4. CAME TO ED DUE TO SOB X1 DAY. REPORTS SOB WITH EXERTION. DENIES SOB AT THIS TIME ON 4LNC. LUNG SOUNDS DIMINISHED BLL. RR EVEN/UNLABORED. RR 20. NO S/S OF ACUTE DISTRESS. DENIES PAIN. IV WNL RFA, 22 GAUGE. PATENT AND FLUSHES WELL. SALINE LOCKED. NSR ON TELE 14. DENIES CHEST PAIN. PT CALM/COOPERATIVE. ORIENTED TO SURROUNDINGS. SIDE RAILS UP X2. BED IN LOW POSITION. CALL LIGHT WITHIN REACH. INSTRUCTED TO USE CALL LIGHT TO CALL FOR ASSISTANCE BEFORE GETTING OOB AND PRN. VERBALIZED UNDERSTANDING. WILL CONT. TO MONITOR.
[2018-09-02 12:36] VITALS: BP 175/72
--- NOTE | 2018-09-02 13:14 | NUR ---
BP ELEVATED, DR. MOSS AWARE, RECEIVED TELEPHONE ORDER FOR PRN BM MED, REPEATED ORDER BACK TO PHYSICIAN, VERIFIED. ORDER ENTERED. PO BP MED GIVEN. PT DENIES CHEST PAIN. DENIES SOB ON 4LNC. NO JOHNSTON. NO DIZZINESS. NO N/V. NO TREMORS. CALM/COOPERATIVE SITTING AT SIDE OF BED EATING LUNCH. IV WNL, SALINE LOCKED. BED IN LOW POSITION. CALL LIGHT WITHIN REACH. FALL PRECAUTIONS IN PLACE. WILL CONTINUE TO MONITOR.
[2018-09-02 14:03] VITALS: BP 157/67
[2018-09-02 17:05] VITALS: BP 150/64
--- NOTE | 2018-09-02 18:10 | NUR ---
PT RESTING IN BED. NO S/S OF ACUTE RESPIRATORY DISTRESS. RR EVEN/UNLABORED. CHEST EXPANSION SYMMETRICAL. NO SOB ON 4LNC. CALM/COOPERATIVE. IV WNL TO RFA, SALINE LOCKED. FALL PRECAUTIONS IN PLACE. EASILY AROUSABLE TO VERBAL STIMULI. BED IN LOW POSITION. CALL LIGHT WITHIN REACH. WILL ENDORSE TO ONCOMING SHIFT.
--- NOTE | 2018-09-02 19:15 | NUR ---
RECEIVED PT FROM PREVIOUS SHIFT NURSE. PT AOX4. DENIES JOHNSTON/DIZZINESS. TELE #14, SR WITH PACS, HR 68. DENIES CP/PRESSURE. DENIES SOB/DIFFICULTY BREATHING, ON 4L NC. IV TO RFA, INTACT AND PATENT. BED IN LOWEST POSITION. CALL LIGHT WITHIN REACH. WILL CONTINUE TO MONITOR.
[2018-09-02 21:14] VITALS: BP 152/75
--- NOTE | 2018-09-02 23:30 | NUR ---
DIALYSIS COMPLETE. 4L OUTPUT PER DIALYSIS NURSE.
[2018-09-03] VITALS (7 sets, daily range): BP systolic 110–163; BP diastolic 58–80
--- NOTE | 2018-09-03 00:52 | NUR ---
RECEIVED CALL FROM [facility] THAT PT WAS HAVING PAUSES. ENTERED PTS ROOM, PT WAS SLEEPING AND WAS EASILY AWOKEN, PER PT HE FEELS FINE. NO COMPLAINTS OF CP. VITAL SIGNS FOLLOW: BP 156/66 MAP 96 HR 74, O2 SAT 95% ON 4L NC. WILL CONTINUE TO MONITOR.
--- NOTE | 2018-09-03 03:09 | NUR ---
PT RESTING IN BED. RR EVEN AND UNLABORED. IN NO ACUTE DISTRESS. CALL LIGHT WITHIN REACH. BED IN LOWEST POSITION. WILL CONTINUE TO MONITOR.
--- NOTE | 2018-09-03 07:10 | NUR ---
RECIEVED PT RESTING COMFORTABLY IN BED. NO C/O PAIN, DISTRESS, OR SOB. A/O X4 NO JOHNSTON OR DIZZINESS. TELE MONITOR #14 ON PT. SR WITH BBB,PACS. DR MOSS AWARE. LEFT CHEST DAR CATH INTACT WITH NO REDNESS NOTED. IV TO RFA 22 GUAGE INTACT AND PATENT WITH NO REDNESS. SAFETY PRECAUTIONS IN PLACE. CALL LIGHT WITHIN REACH, WILL MONITOR.
[2018-09-03 07:29] LABS: CARBON DIOXIDE 27.5 mmol/L (21-32); CHLORIDE SERUM 103 mmol/L (98-107); GLUCOSE SERUM 129 mg/dL (74-106); PHOSPHOROUS 4.7 mg/dL (2.5-4.9); POTASSIUM SERUM 4.5 mmol/L (3.5-5.1); SODIUM SERUM 143 mmol/L (136-145)
[2018-09-03 07:38] LABS: CREATININE SERUM 5.4 mg/dL (0.7-1.3)
--- NOTE | 2018-09-03 08:46 | NUR ---
PT MONITOR SHOWING PSVT SUSTAINED FOR 4 SECONDS, PT IS ASYMPTOMATIC AT THIS TIME. NOTIFIED DOCTOR ISA AND RECIEVED NO ORDERS BEFORE HE HUNG UP ON ME. CHARGE ALSO NOTIFIED, WILL CONTINUE TO MONITOR.
[2018-09-03] MEDS ORDERED: CATAPRES0.1 MG PO (09:27)
--- NOTE | 2018-09-03 11:35 | NUR ---
PT MONITOR SHOWING PT SUSTAINING AFIB WITH RVR FOR 5 MINUTES. PT ASYMPTOMATIC AND DENIES ANY CP, PRESSURE, NAUSEA, OR DIZZINESS. DR SAUNDERS NOTIFIED VIA TELEPHONE. RECIEVED NO NEW ORDERS BEFORE HE HUNG UP ON ME. CHARGE ALSO AWARE.
--- NOTE | 2018-09-03 12:57 | NUR ---
PT STABLE AT THSI TIME. RESTING IN BED. DENIOES ANY PAIN, DISTRESS, OR SOB. SAFETY PRECAUTIONS IN PLACE, CALL LIGHT WITHIN REACH, WILL MONITOR
--- NOTE | 2018-09-03 15:56 | NUR ---
PT SITTING UP IN BED. REPORTS NO PAIN, DISTRESS, OR SOB. STILL WAITING FOR DIALYSIS NURSE TO COME. SAFETY PRECAUTIONS IN PLACE. CALL LIGHT WITHIN REACH. WILL MONITOR.
--- NOTE | 2018-09-03 19:00 | NUR ---
PT STABLE AT THIS TIME WITH HEMODIALYSIS NURSE AT BEDSIDE. VS WNL ALL CARES TOLERATED WELL. DENIES ANY PAIN, DISTRESS, OR SOB. IV TO RFA INTACT AND PATNET WTIH NO REDNESS. SAFETY PRECAUTIONS IN PLACE, CALL LIGHT WITHIN REACH, ENDORSED CARE TO NIGHT NURSE.
--- NOTE | 2018-09-03 19:25 | NUR ---
RECEIVED PT RESTING IN BED, DIAYLSIS NURSE AT BEDSIDE COMPLETING DIALYSIS. PT AOX4, DENIES JOHNSTON/DIZZINESS. TELE #14, SR-ST, PT DENIES CP. RESP EVEN AND UNLABORED ON RA, DENIES SOB. PT WITH PORTACATH TO LEFT UPPER CHEST, DSG CDI. NO REDNESS, SWELLING OR PAIN NOTED. PT HAS SCATTERED BLE/BUE SCABS (DRY, HEALING). PT WITH DRY, SCALY BLE. DENIES PAIN. ALL COMFORT AND SAFETY MEASURES PROVIDED FOR, CALL LIGHT WITHIN REACH, BED IN LOWEST POSITION, WILL CONTINUE TO MONITOR.
--- NOTE | 2018-09-03 20:30 | NUR ---
PT COMPLETE WITH DIALYSIS, 1.5L OUT. PT REPORTS FEELING OK, NO N/V/D/FEVER/CHILLS NOTED. WILL COMPLETE DISCHARGE PACKET, AND OBTAIN SIGNATURE. FAMILY AT BEDSIDE WAITING FOR PT TO BE DISCHARGE.
== END 2018-09-03 21:10 | disposition home or self-care (01) | DRG 291 ==
LOC: ED 07:37 → DU 10:00
PROVIDERS: Emergency Medicine; ADMIT Internal Medicine Pulmonary Disease
PROC: 5A1D70Z Performance of Urinary Filtration, Intermittent, Less than 6 Hours Per Day (ICD-10-PCS; principal; 2018-09-02)
PROC: 5A1D70Z Performance of Urinary Filtration, Intermittent, Less than 6 Hours Per Day (ICD-10-PCS; 2018-09-03)
DX: I13.2 Hypertensive heart and chronic kidney disease with heart failure and with stage 5 chronic kidney disease, or end stage renal disease (principal); N18.6 End stage renal disease; J96.01 Acute respiratory failure with hypoxia; I50.33 Acute on chronic diastolic (congestive) heart failure; E11.22 Type 2 diabetes mellitus with diabetic chronic kidney disease; I48.91 Unspecified atrial fibrillation; D63.1 Anemia in chronic kidney disease; E78.5 Hyperlipidemia, unspecified; Z90.5 Acquired absence of kidney; Z79.01 Long term (current) use of anticoagulants; Z79.4 Long term (current) use of insulin; Z68.26 Body mass index [BMI] 26.0-26.9, adult
CPT/HCPCS: 82962; 83880; 85378; G0378; J1644; J7030; Q0092

== ENCOUNTER 2018-12-09 03:00 | Inpatient (IN) | payer OTHER ==
[~2018-12-09] VITALS: Ht 177.8 cm; Wt 83.1 kg
[~2018-12-09 03:00] MED LIST changes: +AMLODIPINE BES2.5 M1; +CATAPRES0.1 MG PO; +ELIQUIS2.5 MG; +LANTI SQ; +MULTI-VITAMINS1 TAB PO; +TRAMADOL HCL50 MG
--- NOTE | 2018-12-09 03:40 | NUR ---
PT PRESENTED TO ED FOR GENERALIZED NECK AND BILATERAL UPPER SHOULDER PAIN X 2 DAYS. PT FAMILY STATES "OH HE FELL ON SATURDAY BUT WASNT COMPLAINING OF ANY PAIN". DENIES LOC OR HEAD INJURY. PT AWAKE AND ALERT. PT STATES PAIN INCREASES WITH MOVEMENT OF NECK. PT BREATHING EVEN AND UNLABORED. PT FAMILY AT BEDSIDE. WILL CONTINUE TO MONITOR.
--- NOTE | 2018-12-09 04:34 | NUR ---
PT PLACED IN GOWN AND GIVEN WARM BLANKET FOR COMFORT.
--- NOTE | 2018-12-09 05:20 | NUR ---
PT BACK FROM RADIOLOGY VIA [facility].
--- NOTE | 2018-12-09 05:32 | NUR ---
XRAY AT BEDSIDE
--- NOTE | 2018-12-09 05:50 | NUR ---
LAB AT BEDSIDE.
--- NOTE | 2018-12-09 05:53 | NUR ---
EKG IN PROGRESS BY [facility] EMT
[2018-12-09 06:12] LABS: PLATELET COUNT 204 x10^3mcL (130-400)
[2018-12-09 06:13] LABS: BASOPHIL % 0 % (0-2); RED CELL DISTRIBUTION WIDTH 15.3 % (11.5-14.5)
[2018-12-09 06:23] LABS: ALKALINE PHOSPHATASE 129 U/L (46-116); ALT/SGPT 19 U/L (16-63); AST/SGOT 22 U/L (15-37); BILIRUBIN TOTAL 0.74 mg/dL (0.20-1.00); CALCIUM 7.8 mg/dL (8.5-10.1); CARBON DIOXIDE 20.9 mmol/L (21-32); CHLORIDE SERUM 99 mmol/L (98-107); GLUCOSE SERUM 144 mg/dL (74-106); POTASSIUM SERUM 4.9 mmol/L (3.5-5.1); SODIUM SERUM 136 mmol/L (136-145); TOTAL PROTEIN, SERUM 6.9 g/dL (6.4-8.2)
[2018-12-09 06:24] LABS: ALBUMIN 2.8 g/dL (3.4-5.0)
[2018-12-09 06:28] LABS: CREATININE SERUM 7.8 mg/dL (0.7-1.3)
--- NOTE | 2018-12-09 06:30 | NUR ---
PT MEETS [facility] CRITERIA WITH RESP RATE OF 95 IN TRIAGE AND WBC OF 18.7. DR WILKINSON AWARE. DR WILKINSON INFORMED THAT LACTIC ACID SHOULD BE DRAWN WELL BLOOD CULTURES TO R/O SEVERE SEPSIS CRITERIA. PER DR WILKINSON CREATININE OF 7.8 IS A CHRONIC ISSUE AND IS NOT AN ACUTE ORGAN DYSFUNCTION.
--- NOTE | 2018-12-09 06:33 | NUR ---
PT NOTED SATING AT 88% ON RA. PT PLACED ON 4L VIA NC, NOW SATING AT 93%. DR WILKINSON AWARE.
[2018-12-09] MEDS ORDERED: LANTUS SOLOS100 U/M1 (06:35)
[2018-12-09] MEDS ORDERED: TRAMADOL HCL50 MG PO (06:35)
--- NOTE | 2018-12-09 06:59 | NUR ---
LAB AT BEDSIDE
--- NOTE | 2018-12-09 07:13 | NUR ---
REPORT GIVEN TO KIANA HART, KIANA T0 ASSUME CARE OF PT AT THIS TIME.
--- NOTE | 2018-12-09 07:36 | NUR ---
PT TOLERATED BREAKFAST WELL 100%, DTR AT BEDSIDE. VSS.
--- NOTE | 2018-12-09 08:21 | NUR ---
REPORT GIVEN TO TIFFANIE RN, UPDATED ON STATUS, LABS AND VITALS. PT STABLE FOR TRANSFER. IV ANBX INFUSING WELL.
[2018-12-09 09:33] VITALS: BP 147/67
--- NOTE | 2018-12-09 09:58 | NUR ---
PT BROUGHT FROM ED VIA [facility] BY RN FROM ED AND PATIENT REGISTRATION CLERK. TRANSFERRED TO BED WITH ASSISTANCE. PT AWAKE, ALERT, ORIENTED X2 PERSON, PLACE, REORIENTED TO TIME, STATES YEAR [birth year]. FORGETFUL/CONFUSED AT TIMES. FOLLOWS COMPLEX COMMANDS, RESPONDS TO VERBAL STIMULI, FACE SYMMETRICAL, SPEECH CLEAR. NO JOHNSTON. NO DIZZINESS. DENIES PAIN AT THIS TIME. REPORTS INTERMITTENT SOB WITH EXERTION, DENIES AT THIS TIME. O2 SAT 90% ON 2LNC, INCREASED TO 3LNC, O2 SAT INCREASED TO 96%. RR EVEN/UNLABORED. CHEST EXPANSION SYMMETRICAL. LUNG SOUNDS DIMINISHED BLL. DENIES CHEST PAIN. NSR ON TELE 19. IV WNL TO RFA, 22 GAUGE. PATENT AND FLUSHES WELL. PT HAS MULTIPLE SCATTERED DRY ABRASIONS/SCABS NOTED TO BLE/LUE, NO DRAINAGE, LITO. SEE CHART FOR PICTURES. SCARRING NOTED TO LLE, LITO. DRY FLAKY SKIN TO BLE. SIDE RAILS UP X2. FALL PRECAUTIONS IN PLACE. MILD GENERALIZLED WEAKNESS NOTED, ABLE TO REPOSITION INDEPENDENTLY. ACTIVE LIMITED ROM NOTED BUE/BLE. INSTRUCTED TO USE CALL LIGHT TO CALL FOR ASSISTANCE PRN AND BEFORE GETTING OOB. VERBALIZED UNDERSTANDING. BED IN LOW POSITION. BED ALARM ON. CALL LIGHT WITHIN REACH. WILL CONTINUE TO MONITOR.
--- NOTE | 2018-12-09 11:11 | NUR ---
PT RESTING IN BED WITH BOTH EYES CLOSED. NO S/S OF ACUTE DISTRESS. NO SOB ON 3LNC. NO CHEST PAIN. PT CALM/COOPERATIVE. BED IN LOW POSITION. CALL LIGHT WITHIN REACH. URINE OUTPUT 150CC WITH URINAL. FALL PRECAUTIONS IN PLACE. BED IN LOW POSITION. CALL LIGHT WITHIN REACH. WILL CONTINUE TO MONITOR.
[2018-12-09 12:47] VITALS: BP 153/73
--- NOTE | 2018-12-09 13:32 | NUR ---
PT RECEIVING HD. VS STABLE. NO SOB ON 3LNC. NO S/S OF ACUTE DISTRESS. COMPLAINT OF PAIN TO LEFT/RIGHT SHOULDERS/NECK--SORE/ACHING, WORSE WITH POSITIONING/PALPATION. GIVEN PO PAIN MED, SEE MAR. PT CALM/COOPERATIVE. IV WNL TO RFA, SALINE LOCKED. PT TOLERATING RENAL DIET WELL. NO N/V/D. DAUGHTER MACY AT BEDSIDE. BED IN LOW POSITION. CALL LIGHT WITHIN REACH. WILL CONTINUE TO MONITOR.
--- NOTE | 2018-12-09 15:00 | NUR ---
HD COMPLETED. OUTPUT 2.5L. TOLERATED WELL. DRESSING TO LEFT CHEST HD CATHETER CDI.
[2018-12-09 17:24] VITALS: BP 153/67
--- NOTE | 2018-12-09 18:52 | NUR ---
PT LAYING IN BED. AA/OX4. NO S/S OF ACUTE DISTRESS. NO SOB ON ROOM AIR. DENIES ABD. PAIN. NO CHEST PAIN. NO SOB ON ROOM AIR. NO COMPLAINT OF PAIN. IV WNL RFA, SALINE LOCKED. SITE WNL. NO N/V. NO JOHNSTON. NO DIZZINESS. FALL PRECAUTIONS IN PLACE. HD CATHETER IN TACT TO LEFT CHEST, DRESSING CDI. AND DAUGHTER AT BEDSIDE. BED IN LOW POSITION. CALL LIGHT WITHIN REACH. WILL ENDORSE TO ONCOMING SHIFT.
--- NOTE | 2018-12-09 19:42 | NUR ---
RECEIVED PT FROM PREVIOUS SHIFT. PT A/OX2. DENIES PAIN. DENIES SOB ON 3LNC. IV PATENT AND SALINE LOCKED TO RFA. FAMILY AT BEDSIDE. DIALYSIS CATH TO L CHEST. CALL LIGHT WITHIN REACH, BED IN LOW POSITION. WILL CONTINUE TO MONITOR.
[2018-12-09 20:18] VITALS: BP 153/69
--- NOTE | 2018-12-10 02:01 | NUR ---
PT RESTING IN NO ACUTE DISTRESS. RR EVEN AND UNLABORED. CALL LIGHT WITHIN REACH, BED IN LOW POSITION. WILL CONTINUE TO MONITOR.
[2018-12-10 05:01] VITALS: BP 145/68
[2018-12-10 06:41] LABS: CALCIUM 7.4 mg/dL (8.5-10.1); CARBON DIOXIDE 25.9 mmol/L (21-32); CHLORIDE SERUM 102 mmol/L (98-107); GLUCOSE SERUM 101 mg/dL (74-106); MAGNESIUM 1.9 mg/dL (1.8-2.4); POTASSIUM SERUM 4.2 mmol/L (3.5-5.1); SODIUM SERUM 138 mmol/L (136-145)
[2018-12-10 06:56] LABS: BASOPHIL % 0.1 % (0-2); PLATELET COUNT 213 x10^3mcL (130-400); RED CELL DISTRIBUTION WIDTH 15.7 % (11.5-14.5)
[2018-12-10 06:58] LABS: CREATININE SERUM 6.5 mg/dL (0.7-1.3)
--- NOTE | 2018-12-10 07:25 | NUR ---
REPORT TAKEN FROM REPEATER OPERATOR NURSE AT THE BEDSIDE, PATIENT SLEEPING AT THIS TIME AND DID NOT WAKE FOR REPORT, CHEST RISE AND FALL OBSERVED, BREATHING E/U, ON 3L ON O2 VIA NC. WILL CONTINUE TO MONITOR.
[2018-12-10 09:04] VITALS: BP 128/61
--- NOTE | 2018-12-10 11:18 | NUR ---
HD NURSE REPORTS THAT [facility] IS NOT WORKING AT HD PORT, HE WILL BE ABLE TO COMPLETE HD TODAY, BUT ADVISED THE PATIENT WILL NEED PERMA CATH.
--- NOTE | 2018-12-10 11:32 | NUR ---
HD IN PROGRESS AT THIS TIME.
[2018-12-10 13:00] VITALS: BP 131/59
[2018-12-10 13:22] VITALS: BP 144/60
[2018-12-10 16:35] VITALS: BP 150/73
--- NOTE | 2018-12-10 19:22 | NUR ---
REPORT GIVEN TO HR REPRESENTATIVE NURSE CARE ENDORSED
--- NOTE | 2018-12-10 19:30 | NUR ---
PT IS ALERT TO SELF AND PLACE. REORIENTED PT. ABLE TO COMMUNICATION NEEDS AND FOLLOW COMMANDS. TELE #19, NSR. DENIES ANY CHEST PAIN OR PRESSURE. PULSES ARE PRESENT. EDEMA NOTED ON BLE. PORTACATH ON THE L CHEST. INTACT AND CLEAN. LUNGS CLEAR IN ALL FEILDS. ON 3L NC. DENIES ANY SOB. EQUAL CHEST RISE AND FALL. NO SIGN OF RESP DISTRESS. BOWEL SOUNDS PRESENT. PT VOIDS. GENERAL WEAKNESS. PERSONAL CANE AND WALKER AT BEDSIDE. SMALL SCATTERED OLDS ABRASIONS NOTED ALL ALL EXTREMITIES. DENIES ANY PAIN AT THIS TIME. SALINE LOCKED ON R WRIST. CLEAN AND INTACT. FLUSHES WELL. BED ALARM IS ON FOR PT SAFETY. BED IS AT LOWEST SETTING. CALL LIGHT WITHIN REACH. WILL CONTINUE TO MONTIOR.
[2018-12-10 20:59] VITALS: BP 154/77
--- NOTE | 2018-12-11 00:56 | NUR ---
PT HAS CONVERTED TO A-FIB. HR STABLE IN THE MID 90S ONLY SPIKING ONCE TO THE 140S MOMENTARLY. PT SITTING IN BED. DENIES ANY PAIN OR DISTRESS. WILL CONTINUE TO MONTIOR.
--- NOTE | 2018-12-11 00:56 | NUR ---
PT CONVERTED BACK TO NSR. HR IN THE 70S.
--- NOTE | 2018-12-11 02:33 | NUR ---
PT IS RESTING IN BED. PT STATED THE PAIN MEDICATION IS HELPING. NO OTHER COMPLAINTS. BED IS AT LOWEST SETTING. CALL LIGHT WITHIN REACH. WILL CONTIUE TO MONITOR.
[2018-12-11 04:51] VITALS: BP 129/72
--- NOTE | 2018-12-11 06:10 | NUR ---
PT RESTING IN BED. DENIES ANY PAIN OR DISTRESS. PT IS DRINKING A CUP OF COFFEE. BED IS AT LOWEST SETTING. CALL LIGHT WITHIN REACH. BED IS AT LOWEST SETTING. WILL ENDORSE TO AM NURSE.
--- NOTE | 2018-12-11 07:22 | NUR ---
RECEIVED REPORT FROM PRATEEK HART. PATIENT RESTING COMFORTABLY IN BED WITH ALL NEEDS MET. IV TO RT WRIST IS PATENT AND INTACT. NO REDNESS OR PAIN. TELE # [address] PT DENIES CHEST PAIN. PT ON O2 3L NC. NO C/O SOB AND NO DISTRESS NOTED. ALL QUESTIONS AND CONCERNS ADDRESSED.
[2018-12-11 07:24] LABS: ALKALINE PHOSPHATASE 100 U/L (46-116); ALT/SGPT 14 U/L (16-63); AST/SGOT 15 U/L (15-37); BILIRUBIN DIRECT 0.17 mg/dL (0.0-0.2); BILIRUBIN TOTAL 0.4 mg/dL (0.20-1.00); CALCIUM 7.3 mg/dL (8.5-10.1); CARBON DIOXIDE 28.2 mmol/L (21-32); CHLORIDE SERUM 100 mmol/L (98-107); GLUCOSE SERUM 141 mg/dL (74-106); POTASSIUM SERUM 3.8 mmol/L (3.5-5.1); SODIUM SERUM 138 mmol/L (136-145); TOTAL PROTEIN, SERUM 6.5 g/dL (6.4-8.2)
[2018-12-11 07:26] LABS: ALBUMIN 2.1 g/dL (3.4-5.0); CREATININE SERUM 5.3 mg/dL (0.7-1.3)
[2018-12-11 07:27] LABS: BASOPHIL % 0.2 % (0-2); PLATELET COUNT 194 x10^3mcL (130-400)
[2018-12-11 07:33] LABS: RED CELL DISTRIBUTION WIDTH 14.6 % (11.5-14.5)
[2018-12-11 08:20] VITALS: BP 147/60
--- NOTE | 2018-12-11 08:30 | NUR ---
SPOKE WITH DR REAL TO REQUEST GLUCOSE MONITORING FOR PATIENT WITH HISTORY OF DM.
--- NOTE | 2018-12-11 09:09 | NUR ---
IN TO SEE PATIENT AND ADMINISTER MEDICATION (SEE eMAR). PATIENT RESTING COMFORTABLY IN BED WITH ALL NEEDS MET.
[2018-12-11 11:51] VITALS: BP 156/71
--- NOTE | 2018-12-11 12:49 | NUR ---
IN TO SEE AND ASSESS PATIENT BEFORE LUNCH. PATIENT CURRENTLY HAVING ECHO. ALL NEEDS MET. WILL REASSESS AFTER LUNCH.
--- NOTE | 2018-12-11 13:42 | NUR ---
IN TO SEE PATIENT AND ASSESS NEEDS AFTER LUNCH. PT SITTING COMFORTABLY AT EDGE OF BED ABOUT USE THE URINAL. ALL NEEDS MET.
--- NOTE | 2018-12-11 16:48 | NUR ---
IN TO SEE PATIENT AND CHECK BLOOD GLUCOSE. GLUCOSE IS 141. NO ACTION REQUIRED.
[2018-12-11 17:12] VITALS: BP 152/69
--- NOTE | 2018-12-11 18:53 | NUR ---
IN TO SEE PATIENT TO ASSESS NEEDS AND NOTIFY OF UPCOMING SHIFT CHANGE. PATIENT SITTING COMFORTABLY IN BED WITH FAMILY AT BEDSIDE. ALL NEEDS MET. WILL ENDORSE ALL CARE TO ONCOMING NURSE YAZMIN.
--- NOTE | 2018-12-11 19:20 | NUR ---
RECIEVED PT SITTING ON SIDE OF BED WITH FAMILY AT BEDSIDE, ASSESSMENT PERFORMED AT THIS TIME. PT IS A/OX4 NO COMPLAINTS OF JOHNSTON OR DIZZINESS, PT HAS IV TO THE RIGHT WRIST/FOREARM SALINE LOCKED, TELE 19 NSR, ALL NEEDS ATTENDED TO SAFETY PRECAUTIONS IN PLACE, WILL CONTINUE TO MONITOR
[2018-12-11 20:44] VITALS: BP 152/71
--- NOTE | 2018-12-11 23:05 | NUR ---
PT RESTING IN BED WITH NO ACUTE DISTRESS NOTED AT THIS TIME. PT DENIES PAIN OR SOB AT THIS TIME, DR CROOK IN TO SEE PT, ALL NEEDS ATTENDED TO AT THIS TIME WIIL CONTINUE TO MONITOR
--- NOTE | 2018-12-12 01:58 | NUR ---
REPORTED PATIENT TO PEPE RN, PT IS CALM AND IN NO ACUTE DISTRESS AT THIS TIME, NO SIGNS OF SOB OR PAIN, SAFETY PRECAUTIONS IN PLACE.
--- NOTE | 2018-12-12 02:25 | NUR ---
PT RECIEVED FROM YAZMIN HART. PT RESTING IN BED AT THIS TIME. NO S/S OF PAIN OR DISCOMFORT NOTED. BREATHIGN E/U ON 3L NC. NO S/S OF ACUTE DISTRESS NOTED AT THIS TIME. BED AT LOWEST POSITION. CALL LIGHT WITHIN REACH. WILL CONTINUE TO MONITOR.
[2018-12-12 05:24] VITALS: BP 149/60
--- NOTE | 2018-12-12 06:29 | NUR ---
PT RESTING IN BED AT THIS TIME. DENIES PAIN OF DISCOMFORT. BREATHIN E/U ON 3L NC. NO SIGNS OF ACUTE DISTRESS NOTED AT THIS TIME. ALL NEEDS AND CONCERNS ADDRESSED THIS SHIFT. BED AT LOWEST POSITION. CALL LIGHT WITHIN REACH. WILL ENDORSE TO DAY NURSE.
[2018-12-12 06:54] LABS: CALCIUM 7.4 mg/dL (8.5-10.1); CARBON DIOXIDE 26.3 mmol/L (21-32); CHLORIDE SERUM 101 mmol/L (98-107); GLUCOSE SERUM 95 mg/dL (74-106); PHOSPHOROUS 5.2 mg/dL (2.5-4.9); POTASSIUM SERUM 4.1 mmol/L (3.5-5.1); SODIUM SERUM 139 mmol/L (136-145)
[2018-12-12 06:58] LABS: CREATININE SERUM 5.9 mg/dL (0.7-1.3)
--- NOTE | 2018-12-12 07:00 | NUR ---
RECEIVED PT FROM JOB COUNSELOR NURSE. PT IN BED SLEEPING, AROUSABLE, RESP E/U ON RA. NO ACUTE DISTRESS NOTED. ON TELE 19 SHOWING NSR, HR: 81. IV TO R WRIST W/ NO SIGNS OF INFILTRATION, IVF INFUSING WELL AT KVO. BED IN LOWEST POSITION, CALL LIGHT WITHIN REACH AND WALKER BY BEDSIDE. WILL CONTINUE TO MONITOR.
[2018-12-12] MEDS ORDERED: VANCOMYCIN PER PHARM MC (07:08)
[2018-12-12 07:17] LABS: BASOPHIL % 0 % (0-2); PLATELET COUNT 224 x10^3mcL (130-400); RED CELL DISTRIBUTION WIDTH 15.1 % (11.5-14.5)
[2018-12-12 12:29] VITALS: BP 165/77
--- NOTE | 2018-12-12 19:27 | NUR ---
PT DISCHARGED. REVIEWED VISIT SUMMARY, EDUCATIONAL PACKET AND FOLLOW UP INSTRUCTIONS W/ PT. PT AOX4, RESP E/U ON RA, VS STABLE, DENIES PAIN. IV TO LFA REMOVED, CATH INTACT, GAUZE DRESSING APPLIED. PT AMBULATORY W/ WALKER TO ANNA, ESCORTED BY DAUGHTER AND MINING AND QUARRYING MACHINERY REPAIRER RAHEEL W/ NO ACUTE INCIDENCE.
== END 2018-12-12 19:00 | disposition home or self-care (01) | DRG 314 ==
LOC: ED 03:00 → DU 07:25
PROVIDERS: Emergency Medicine; Internal Medicine; Internal Medicine Nephrology; ADMIT Internal Medicine Pulmonary Disease
DX: T80.211A Bloodstream infection due to central venous catheter, initial encounter (principal); N18.6 End stage renal disease; I50.43 Acute on chronic combined systolic (congestive) and diastolic (congestive) heart failure; I13.2 Hypertensive heart and chronic kidney disease with heart failure and with stage 5 chronic kidney disease, or end stage renal disease; B95.4 Other streptococcus as the cause of diseases classified elsewhere; S13.4XXA Sprain of ligaments of cervical spine, initial encounter; I50.84 End stage heart failure; E11.22 Type 2 diabetes mellitus with diabetic chronic kidney disease; E11.65 Type 2 diabetes mellitus with hyperglycemia; M50.30 Other cervical disc degeneration, unspecified cervical region; E66.9 Obesity, unspecified; Z99.2 Dependence on renal dialysis; Z79.01 Long term (current) use of anticoagulants; Z79.84 Long term (current) use of oral hypoglycemic drugs; Z86.711 Personal history of pulmonary embolism; Z86.718 Personal history of other venous thrombosis and embolism; W18.39XA Other fall on same level, initial encounter; Y71.2 Prosthetic and other implants, materials and accessory cardiovascular devices associated with adverse incidents; Y92.009 Unspecified place in unspecified non-institutional (private) residence as the place of occurrence of the external cause
CPT/HCPCS: 82962; G0378; J0456; J0696; J1580; J1644; J1815; J2997; J3370; J7030; J7050; Q0092

== ENCOUNTER 2018-12-24 04:02 | Emergency (ER) | payer OTHER ==
[~2018-12-24] VITALS: Ht 180.3 cm; Wt 85.3 kg
[~2018-12-24 04:02] MED LIST changes: +TRAMADOL HCL50 MG PO; +VANCOMYCIN PER PHARM MC
[2018-12-24 04:08] VITALS: Ht 180.3 cm; Wt 85.3 kg
[2018-12-24 04:52] LABS: BASOPHIL % 0.4 % (0-2); PLATELET COUNT 194 x10^3mcL (130-400)
[2018-12-24 04:57] LABS: RED CELL DISTRIBUTION WIDTH 15.1 % (11.5-14.5)
[2018-12-24 05:20] LABS: ALKALINE PHOSPHATASE 124 U/L (46-116); ALT/SGPT 26 U/L (16-63); AST/SGOT 26 U/L (15-37); BILIRUBIN TOTAL 0.42 mg/dL (0.20-1.00); CALCIUM 7.8 mg/dL (8.5-10.1); CARBON DIOXIDE 31.2 mmol/L (21-32); CHLORIDE SERUM 101 mmol/L (98-107); GLUCOSE SERUM 130 mg/dL (74-106); POTASSIUM SERUM 4.4 mmol/L (3.5-5.1); SODIUM SERUM 140 mmol/L (136-145); TOTAL PROTEIN, SERUM 7.4 g/dL (6.4-8.2)
[2018-12-24 05:26] LABS: ALBUMIN 2.6 g/dL (3.4-5.0)
[2018-12-24 05:27] LABS: CREATININE SERUM 4.2 mg/dL (0.7-1.3)
[2018-12-24 05:57] VITALS: BP 164/62
== END 2018-12-24 05:57 | disposition home or self-care (01) ==
LOC: ED 04:02
PROVIDERS: Emergency Medicine
DX: J00 Acute nasopharyngitis [common cold] (principal); E11.22 Type 2 diabetes mellitus with diabetic chronic kidney disease; I12.0 Hypertensive chronic kidney disease with stage 5 chronic kidney disease or end stage renal disease; N18.6 End stage renal disease; Z99.2 Dependence on renal dialysis; Z98.890 Other specified postprocedural states
CPT/HCPCS: 36415; 83880; Q0092

== ENCOUNTER 2019-02-27 17:26 | Observation (INO) | payer OTHER ==
[~2019-02-27] VITALS: Ht 177.8 cm; Wt 805.6 kg
[2019-02-27 17:31] VITALS: Ht 177.8 cm; Wt 805.6 kg
[2019-02-27 18:22] LABS: BASOPHIL % 0.1 % (0-2); PLATELET COUNT 166 x10^3mcL (130-400)
[2019-02-27 18:23] LABS: RED CELL DISTRIBUTION WIDTH 14.9 % (11.5-14.5)
[2019-02-27 18:35] LABS: CALCIUM 7.9 mg/dL (8.5-10.1); CARBON DIOXIDE 31.8 mmol/L (21-32); CHLORIDE SERUM 104 mmol/L (98-107); CREATININE SERUM 3.3 mg/dL (0.7-1.3); GLUCOSE SERUM 202 mg/dL (74-106); POTASSIUM SERUM 3.6 mmol/L (3.5-5.1); SODIUM SERUM 142 mmol/L (136-145)
[2019-02-27 18:40] LABS: ALKALINE PHOSPHATASE 119 U/L (46-116); ALT/SGPT 19 U/L (16-63); AST/SGOT 12 U/L (15-37); BILIRUBIN TOTAL 0.46 mg/dL (0.20-1.00); TOTAL PROTEIN, SERUM 7.2 g/dL (6.4-8.2)
[2019-02-27 18:43] LABS: ALBUMIN 2.6 g/dL (3.4-5.0)
[2019-02-27 23:34] VITALS: BP 158/71
[2019-02-28 05:24] VITALS: BP 148/62
[2019-02-28 06:44] LABS: BASOPHIL % 0.2 % (0-2); PLATELET COUNT 158 x10^3mcL (130-400)
[2019-02-28 06:58] LABS: RED CELL DISTRIBUTION WIDTH 15.2 % (11.5-14.5)
[2019-02-28 07:03] LABS: CALCIUM 7.8 mg/dL (8.5-10.1); CHLORIDE SERUM 105 mmol/L (98-107); CREATININE SERUM 3.9 mg/dL (0.7-1.3); GLUCOSE SERUM 104 mg/dL (74-106); MAGNESIUM 1.8 mg/dL (1.8-2.4); POTASSIUM SERUM 3.7 mmol/L (3.5-5.1); SODIUM SERUM 142 mmol/L (136-145)
[2019-02-28 09:01] VITALS: BP 162/67
[2019-02-28 12:58] VITALS: BP 176/54
[2019-02-28 13:06] VITALS: BP 176/54
[2019-02-28 13:32] VITALS: BP 176/54
== END 2019-02-28 13:53 | disposition home or self-care (01) ==
LOC: ED 17:26 → MU 22:24 → DU 22:24 → MU 23:28 → DU 02-28 04:45
PROVIDERS: Emergency Medicine; ADMIT Internal Medicine Pulmonary Disease
DX: R51 Headache (principal); I16.0 Hypertensive urgency; I12.0 Hypertensive chronic kidney disease with stage 5 chronic kidney disease or end stage renal disease; N18.6 End stage renal disease; E11.22 Type 2 diabetes mellitus with diabetic chronic kidney disease; I48.91 Unspecified atrial fibrillation
CPT/HCPCS: 82962; G0378; Q0092

== ENCOUNTER 2019-05-04 14:12 | Inpatient (IN) | payer OTHER ==
[~2019-05-04] VITALS: Ht 180.3 cm; Wt 83.9 kg
[2019-05-04 14:21] VITALS: Ht 180.3 cm; Wt 83.9 kg
[2019-05-04 15:34] LABS: PLATELET COUNT 162 x10^3mcL (130-400)
[2019-05-04 15:35] LABS: BASOPHIL % 0 % (0-2); RED CELL DISTRIBUTION WIDTH 15.1 % (11.5-14.5)
[2019-05-04 15:41] LABS: CALCIUM 8.6 mg/dL (8.5-10.1); CARBON DIOXIDE 21.1 mmol/L (21-32); CHLORIDE SERUM 102 mmol/L (98-107); GLUCOSE SERUM 160 mg/dL (74-106); POTASSIUM SERUM 4.7 mmol/L (3.5-5.1); SODIUM SERUM 140 mmol/L (136-145)
[2019-05-04 15:47] LABS: CREATININE SERUM 7.1 mg/dL (0.7-1.3)
[2019-05-04] MEDS ORDERED: RENA-VITE RX1 TAB (16:37)
[2019-05-04 18:44] VITALS: BP 158/85
[2019-05-04 21:49] VITALS: BP 149/75
[2019-05-05] VITALS (7 sets, daily range): BP systolic 128–165; BP diastolic 60–83
[2019-05-05 09:59] LABS: CALCIUM 8.2 mg/dL (8.5-10.1); CHLORIDE SERUM 104 mmol/L (98-107); GLUCOSE SERUM 232 mg/dL (74-106); POTASSIUM SERUM 4.3 mmol/L (3.5-5.1); SODIUM SERUM 141 mmol/L (136-145)
[2019-05-05 10:02] LABS: CREATININE SERUM 5.1 mg/dL (0.7-1.3)
[2019-05-06 05:25] VITALS: BP 143/69
[2019-05-06 06:35] LABS: BASOPHIL % 0.4 % (0-2); PLATELET COUNT 145 x10^3mcL (130-400)
[2019-05-06 06:51] LABS: ALKALINE PHOSPHATASE 133 U/L (46-116); ALT/SGPT 26 U/L (16-63); AST/SGOT 17 U/L (15-37); BILIRUBIN TOTAL 0.7 mg/dL (0.20-1.00); CALCIUM 8.2 mg/dL (8.5-10.1); CARBON DIOXIDE 27.5 mmol/L (21-32); CHLORIDE SERUM 103 mmol/L (98-107); GLUCOSE SERUM 112 mg/dL (74-106); POTASSIUM SERUM 4.3 mmol/L (3.5-5.1); SODIUM SERUM 141 mmol/L (136-145); TOTAL PROTEIN, SERUM 7.3 g/dL (6.4-8.2)
[2019-05-06 07:06] LABS: RED CELL DISTRIBUTION WIDTH 15.2 % (11.5-14.5)
[2019-05-06 07:29] LABS: ALBUMIN 2.7 g/dL (3.4-5.0)
[2019-05-06 07:47] VITALS: BP 142/68
[2019-05-06] MEDS ORDERED: ELIQUIS2.5 MG PO (11:05)
[2019-05-06 11:33] VITALS: BP 143/71
[2019-05-06 12:47] VITALS: BP 143/71
== END 2019-05-06 13:30 | disposition home or self-care (01) | DRG 291 ==
LOC: ED 14:12 → DU 16:29 → MU 05-06 09:34
PROVIDERS: Emergency Medicine; Internal Medicine; ADMIT Hospitalist
DX: I13.2 Hypertensive heart and chronic kidney disease with heart failure and with stage 5 chronic kidney disease, or end stage renal disease (principal); N18.6 End stage renal disease; J96.01 Acute respiratory failure with hypoxia; I50.9 Heart failure, unspecified; I48.0 Paroxysmal atrial fibrillation; E87.70 Fluid overload, unspecified; M19.90 Unspecified osteoarthritis, unspecified site; G89.29 Other chronic pain; Z79.01 Long term (current) use of anticoagulants; Z99.2 Dependence on renal dialysis; Z68.25 Body mass index [BMI] 25.0-25.9, adult; Z91.15 Patient's noncompliance with renal dialysis
CPT/HCPCS: 83880; 97116-GP; G0378; J1644; J1940; J7620

== ENCOUNTER 2019-07-17 17:18 | Emergency (ER) | payer OTHER ==
[~2019-07-17 17:18] MED LIST changes: +ELIQUIS2.5 MG PO; +RENA-VITE RX1 TAB
[2019-07-17 17:22] VITALS: Ht 170.2 cm
[2019-07-17 18:00] LABS: BASOPHIL % 0.4 % (0-2); PLATELET COUNT 169 x10^3mcL (130-400); RED CELL DISTRIBUTION WIDTH 15.5 % (11.5-14.5)
[2019-07-17 18:08] LABS: CALCIUM 8.5 mg/dL (8.5-10.1); CARBON DIOXIDE 28.5 mmol/L (21-32); CHLORIDE SERUM 103 mmol/L (98-107); CREATININE SERUM 3.5 mg/dL (0.7-1.3); GLUCOSE SERUM 155 mg/dL (74-106); POTASSIUM SERUM 3.8 mmol/L (3.5-5.1); SODIUM SERUM 141 mmol/L (136-145)
[2019-07-17 18:13] LABS: ALKALINE PHOSPHATASE 118 U/L (46-116); ALT/SGPT 20 U/L (16-63); AST/SGOT 16 U/L (15-37); BILIRUBIN TOTAL 0.4 mg/dL (0.20-1.00); TOTAL PROTEIN, SERUM 6.9 g/dL (6.4-8.2)
[2019-07-17 18:14] LABS: ALBUMIN 2.7 g/dL (3.4-5.0)
[2019-07-17 19:14] VITALS: BP 124/71
== END 2019-07-17 19:38 | disposition home or self-care (01) ==
LOC: ED 17:18
PROVIDERS: Emergency Medicine
DX: H53.8 Other visual disturbances (principal); E11.22 Type 2 diabetes mellitus with diabetic chronic kidney disease; I12.9 Hypertensive chronic kidney disease with stage 1 through stage 4 chronic kidney disease, or unspecified chronic kidney disease; N18.9 Chronic kidney disease, unspecified; I48.91 Unspecified atrial fibrillation; Z98.890 Other specified postprocedural states; Z99.2 Dependence on renal dialysis
CPT/HCPCS: 36415

== ENCOUNTER 2019-08-24 14:36 | Observation (INO) | payer OTHER ==
[~2019-08-24] VITALS: Ht 180.3 cm; Wt 84.4 kg
[2019-08-24 14:57] VITALS: Ht 180.3 cm; Wt 84.4 kg
[2019-08-24 15:43] LABS: BASOPHIL % 0.3 % (0-2); PLATELET COUNT 159 x10^3mcL (130-400); RED CELL DISTRIBUTION WIDTH 15.3 % (11.5-14.5)
[2019-08-24 15:54] LABS: ALKALINE PHOSPHATASE 103 U/L (46-116); ALT/SGPT 15 U/L (16-63); AST/SGOT 22 U/L (15-37); BILIRUBIN TOTAL 0.5 mg/dL (0.20-1.00); CALCIUM 8.2 mg/dL (8.5-10.1); CARBON DIOXIDE 26.1 mmol/L (21-32); CHLORIDE SERUM 101 mmol/L (98-107); GLUCOSE SERUM 110 mg/dL (74-106); POTASSIUM SERUM 5.5 mmol/L (3.5-5.1); SODIUM SERUM 137 mmol/L (136-145); TOTAL PROTEIN, SERUM 7.3 g/dL (6.4-8.2)
[2019-08-24 16:05] LABS: ALBUMIN 2.8 g/dL (3.4-5.0)
[2019-08-24 16:06] LABS: CREATININE SERUM 6.5 mg/dL (0.7-1.3)
[2019-08-24 18:53] VITALS: BP 143/72
[2019-08-24 21:48] VITALS: BP 103/66
[2019-08-25 06:53] VITALS: BP 139/73
[2019-08-25 08:20] VITALS: BP 146/81
[2019-08-25 12:15] VITALS: BP 135/70
[2019-08-25 16:11] VITALS: BP 122/62
[2019-08-25 20:32] VITALS: BP 128/74
[2019-08-26 04:46] VITALS: BP 154/46
[2019-08-26 06:48] LABS: CALCIUM 8.2 mg/dL (8.5-10.1); CARBON DIOXIDE 26.4 mmol/L (21-32); CHLORIDE SERUM 100 mmol/L (98-107); GLUCOSE SERUM 119 mg/dL (74-106); POTASSIUM SERUM 4.7 mmol/L (3.5-5.1); SODIUM SERUM 137 mmol/L (136-145)
[2019-08-26 06:51] LABS: CREATININE SERUM 5.8 mg/dL (0.7-1.3)
[2019-08-26 06:55] LABS: BASOPHIL % 0.2 % (0-2); PLATELET COUNT 162 x10^3mcL (130-400)
[2019-08-26 07:02] LABS: RED CELL DISTRIBUTION WIDTH 14.9 % (11.5-14.5)
[2019-08-26] MEDS ORDERED: LAC PO (10:25)
[2019-08-26] MEDS ORDERED: CLINDAMYCIN HC300 MG PO (10:28)
[2019-08-26 10:58] VITALS: BP 130/64
[2019-08-26 11:30] VITALS: BP 117/61
[2019-08-26 11:50] VITALS: BP 121/75
== END 2019-08-26 13:39 | disposition home health service (06) ==
LOC: ED 14:36 → DU 16:35
PROVIDERS: Emergency Medicine; Internal Medicine Nephrology; ADMIT Internal Medicine
DX: J96.01 Acute respiratory failure with hypoxia (principal); I13.2 Hypertensive heart and chronic kidney disease with heart failure and with stage 5 chronic kidney disease, or end stage renal disease; E87.5 Hyperkalemia; R60.1 Generalized edema; E11.22 Type 2 diabetes mellitus with diabetic chronic kidney disease; Z99.2 Dependence on renal dialysis; I89.0 Lymphedema, not elsewhere classified; I50.9 Heart failure, unspecified; I48.91 Unspecified atrial fibrillation
CPT/HCPCS: 97112-GP; 97530-GP; G0378; J1644; J1940; J3490; J7030; J7040

== ENCOUNTER 2019-09-03 08:42 | Day surgery (SDC) | payer OTHER ==
--- NOTE | 2019-09-01 13:49 | NUR ---
SPOKE WITH ALISHA HART PACU. PER DR GUIDO TO ORDER STAT LABS UPON ARRIVAL FOR SURGERY ON 09-03-19: CBC, CMP, PT/PTT. ORDERS ENTERED IN COMPUTER FOR SATURDAY LAB DRAW.
[~2019-09-03] VITALS: Ht 180.3 cm; Wt 86.2 kg
[~2019-09-03 08:42] MED LIST changes: +CLINDAMYCIN HC300 MG PO; +LAC PO
[2019-09-03 09:22] LABS: BASOPHIL % 0.3 % (0-2); PLATELET COUNT 159 x10^3mcL (130-400)
[2019-09-03 09:23] LABS: RED CELL DISTRIBUTION WIDTH 14.7 % (11.5-14.5)
[2019-09-03 09:39] LABS: ALKALINE PHOSPHATASE 93 U/L (46-116); ALT/SGPT 15 U/L (16-63); AST/SGOT 15 U/L (15-37); BILIRUBIN TOTAL 0.5 mg/dL (0.20-1.00); CALCIUM 8.4 mg/dL (8.5-10.1); CARBON DIOXIDE 28.8 mmol/L (21-32); CHLORIDE SERUM 99 mmol/L (98-107); CREATININE SERUM 3.8 mg/dL (0.7-1.3); GLUCOSE SERUM 87 mg/dL (74-106); POTASSIUM SERUM 3.8 mmol/L (3.5-5.1); SODIUM SERUM 136 mmol/L (136-145); TOTAL PROTEIN, SERUM 7.4 g/dL (6.4-8.2)
[2019-09-03 09:40] LABS: ALBUMIN 2.9 g/dL (3.4-5.0)
[2019-09-03 10:00] VITALS: BP 133/63
[2019-09-03 15:58] VITALS: BP 149/88
== END 2019-09-03 14:00 | disposition home or self-care (01) ==
LOC: DS 08:42 → OR 10:30 → DS 10:30 → OR 09-10 10:30
PROVIDERS: Anesthesiology; ATTEND Surgery
DX: E11.22 Type 2 diabetes mellitus with diabetic chronic kidney disease (principal); I12.0 Hypertensive chronic kidney disease with stage 5 chronic kidney disease or end stage renal disease; I48.0 Paroxysmal atrial fibrillation; N18.6 End stage renal disease; Z99.2 Dependence on renal dialysis; Z11.59 Encounter for screening for other viral diseases; Z86.39 Personal history of other endocrine, nutritional and metabolic disease; Z79.899 Other long term (current) drug therapy
CPT/HCPCS: J0690; J1644; J2001; J2250; J3010; U0003-CS

== ENCOUNTER 2020-01-20 19:17 | Emergency (ER) | payer OTHER ==
[~2020-01-20] VITALS: Ht 180.3 cm; Wt 65.8 kg
[2020-01-20 19:27] VITALS: Ht 180.3 cm; Wt 65.8 kg
[2020-01-20 20:06] VITALS: BP 168/71
== END 2020-01-20 20:06 | disposition home or self-care (01) ==
LOC: ED 19:17
DX: K40.90 Unilateral inguinal hernia, without obstruction or gangrene, not specified as recurrent (principal); I10 Essential (primary) hypertension; E11.9 Type 2 diabetes mellitus without complications; Z98.890 Other specified postprocedural states